=== PATIENT | female | born 1975 | race American Indian/Alaskan Native ===

== ENCOUNTER 2017-07-21 00:28 | Emergency (ER) | payer MEDICAID ==
[2017-07-21 04:12] VITALS: BP 145/74
[2017-07-21] MEDS ORDERED: NORCO 10/325 PO ONE (04:52)
--- NOTE | 2017-07-21 05:18 | Emergency Department Report ---
HPI - General Chief Complaint: Headache Time Seen by Provider: 07/21/17 05:14 - HPI HPI: PATIENT IS HERE WITH HEADACHE, BILATERAL FOREHEAD THAT HAS BEEN THERE FOR THE PAST THREE DAYS. PATIENT DENIES ANY FEVER, NECK PAIN, NAUSEA OR VOMITING. PATIENT STATES AT ITS ONSET, PAIN WAS 10/10, BUT AFTER TAKING OTC MEDICATIONS, IT IS NOW 3-6/10. PATIENT HAS HAD SIMILAR HEADACHE IN THE PAST. PATIENT HAS SEEN HER PCP IN THE PAST FOR THESE HEADACHE, BUT NOW WANTS TO SEE A NEUROLOGIST. ED Past Medical Hx - Past Medical History Previous Medical History?: No - Surgical History Past Surgical History?: Yes Additional Surgical History: ABD HERNIA - Family History Family history: hypertension - Social History Smoking Status: Never Smoker Substance Use Type: None - Medications Home Medications: Home Medications Medication Instructions Recorded Confirmed Last Taken Type Butalb/Acetamin/Caff 50-325-40 1 tab PO Q8HR PRN #20 tablet 07/21/17 Unknown Rx [Fioricet] ED Review of Systems ROS: Stated complaint: HEADACHES/SOB Other details as noted in HPI Comment: All other systems reviewed and negative Genitourinary: as per HPI Musculoskeletal: as per HPI Neurological: headache Physical Exam - Physical Exam Vital Signs: Vital Signs 07/21/17 07/21/17 00:34 04:11 Temperature 98.2 F 98.1 F Pulse Rate 73 65 Respiratory 20 17 Rate Blood Pressure 150/92 145/74 O2 Sat by Pulse 100 Oximetry Physical Exam: - General Limitations: No Limitations General appearance: alert, in no apparent distress - Head Head exam: Present: atraumatic, normocephalic - Eye Eye exam: Present: normal appearance - ENT ENT exam: Present: mucous membranes moist - Neck Neck exam: Present: normal inspection - Respiratory Respiratory exam: Present: normal lung sounds bilaterally. Absent: respiratory distress - Cardiovascular Cardiovascular Exam: Present: normal rhythm, tachycardia. Absent: systolic murmur, diastolic murmur, rubs, gallop - GI/Abdominal GI/Abdominal exam: Present: soft, normal bowel sounds - Extremities Exam Extremities exam: Present: normal inspection - Back Exam Back exam: Present: normal inspection - Neurological Exam Neurological exam: Present: alert, oriented X3, - Skin Skin exam: Present: warm, dry, intact, normal color. Absent: rash ED Course Vital Signs 07/21/17 07/21/17 00:34 04:11 Temperature 98.2 F 98.1 F Pulse Rate 73 65 Respiratory 20 17 Rate Blood Pressure 150/92 145/74 O2 Sat by Pulse 100 Oximetry Critical care attestation.: If time is entered above; I have spent that time in minutes in the direct care of this critically ill patient, excluding procedure time. ED Disposition Clinical Impression: Tension headache Disposition: - TO HOME OR SELFCARE Is pt being admited?: No Does the pt Need Aspirin: No Condition: Stable Instructions: Tension Headache (ED) Prescriptions: Butalb/Acetamin/Caff 50-325-40 [Fioricet] 1 tab PO Q8HR PRN #20 tablet PRN Reason: Headache Referrals: EPIFANIO SILVA MD [Referring] - 3-5 Days PRIMARY CARE, [Primary Care Provider] - 3-5 Days Forms: Work/School Release Form(ED)
== END 2017-07-21 05:24 | disposition home or self-care (01) ==
LOC: ED 00:28
DX: G44.209 Tension-type headache, unspecified, not intractable (principal)
CPT/HCPCS: 99282